=== PATIENT | female | born 1960 | race Caucasian/White ===

== ENCOUNTER 2020-09-26 15:39 | Emergency (ER) | payer OTHER ==
[~2020-09-26] VITALS: Ht 162.5 cm; Wt 97.2 kg
--- NOTE | 2020-09-26 16:11 | ED GI ---
General Chief Complaint: Abdominal/GI Problems Stated Complaint: BLOOD IN STOOL History of Present Illness Date Seen by Provider: Sep 26, 2020 Time Seen by Provider: 16:00 Initial Comments 59-year-old female presents with onset of blood in her stool today. History of present illness, patient has had diarrhea daily for the past almost 3 weeks. It finally slowed down and she had no bowel movements for 3 days until today she said she had a hard bowel movement, then loose stool again and thereafter had fr ank blood without stool a couple times. Denies history of melena, hematochezia, or any GI disorder. Patient denies fever, chills or weight loss. Denies nausea vomiting. Denies any abdominal pain. Allergies and Home Medications Patient Home Medication List Home Medication List Reviewed: Yes Review of Systems Review of Systems Constitutional: see HPI; No chills, No fever, No malaise, No weakness EENTM: No Symptoms Reported Respiratory: Denies Cough, Denies Shortness of Air, Denies SOA With Exertion Cardiovascular: Denies Chest Pain, Denies Edema, Denies Lightheadedness, Denies Palpitations, Denies Syncope Gastrointestinal: See HPI; Denies Abdomen Distended, Denies Abdominal Pain; Diarrhea; Denies Nausea, Denies Poor Appetite, Denies Poor Fluid Intake; Rectal Bleeding; Denies Vomiting Genitourinary: Denies Burning, Denies Frequency Musculoskeletal: No back pain, No joint pain Skin: No change in color, No rash Psychiatric/Neurological: No Symptoms Reported; Denies Headache, Denies Numbness, Denies Paresthesia Past [id number] Hx Past Med/Social Hx: Reviewed Nursing Past Med/Soc Hx Patient Social History Recent Foreign Travel: No Contact w/Someone Who Travel: No Physical Exam Vital Signs Capillary Refill : Height/Weight/BMI Height: '" Weight: lbs. oz. kg; BMI Method: General Appearance: WD/WN, no apparent distress Respiratory: chest non-tender, lungs clear, normal breath sounds, no respiratory distress Cardiovascular: regular rate, rhythm, no edema, no JVD Gastrointestinal: normal bowel sounds, non tender, soft, no organomegaly Extremities: normal range of motion, non-tender, normal inspection Back: normal inspection, no CVA tenderness Neurologic/Psychiatric: alert, normal mood/affect Skin: normal color, warm/dry Focused Exam Lactate Level 10/27/20 16:24: Lactic Acid Level Laboratory Tests Test 09/26/20 16:24 Progress/Results/Core Measures Results/Orders Lab Results Laboratory Tests Test 09/26/20 16:24 Range/Units White Blood Count 8.3 4.3-11.0 10^3/uL Red Blood Count 4.53 4.35-5.85 10^6/uL Hemoglobin 13.2 11.5-16.0 G/DL Hematocrit 38 35-52 % Mean Corpuscular Volume 84 80-99 FL Mean Corpuscular Hemoglobin 29 25-34 PG Mean Corpuscular Hemoglobin Concent 35 32-36 G/DL Red Cell Distribution Width 13.5 10.0-14.5 % Platelet Count 273 130-400 10^3/uL Mean Platelet Volume 11.2 H 7.4-10.4 FL Immature Granulocyte % (Auto) 0 % Neutrophils (%) (Auto) 73 42-75 % Lymphocytes (%) (Auto) 17 12-44 % Monocytes (%) (Auto) 6 0-12 % Eosinophils (%) (Auto) 3 0-10 % Basophils (%) (Auto) 1 0-10 % Neutrophils # (Auto) 6.0 1.8-7.8 X 10^3 Lymphocytes # (Auto) 1.4 1.0-4.0 X 10^3 Monocytes # (Auto) 0.5 0.0-1.0 X 10^3 Eosinophils # (Auto) 0.3 0.0-0.3 10^3/uL Basophils # (Auto) 0.0 0.0-0.1 10^3/uL Immature Granulocyte # (Auto) 0.0 0.0-0.1 10^3/uL My Orders Orders - TOMER CARPENTER DO Cbc With Automated Diff (09/26/20 15:53) Comprehensive Metabolic Panel (09/26/20 15:53) Urinalysis (09/26/20 15:53) Lactic Acid Analyzer (09/26/20 15:53) Departure Impression Primary Impression: Lower GI bleed Disposition: 01 HOME, SELF-CARE Condition: Stable Departure-Patient Inst. Decision time for Depature: 16:58 Referrals: LEILA ANGULO DO NO,LOCAL PHYSICIAN (PCP) Primary Care Physician Patient Instructions: Bloody Stools, Adult (DC) Add. Discharge Instructions: Follow up with your primary doctor (or Dr Angulo, General Surgeon) to schedule a diagnostic colonoscopy for lower GI bleeding. All discharge instructions reviewed with patient and/or family. Voiced understanding. TOMER CARPENTER DO Sep 26, 2020 16:11
[2020-09-26 16:47] LABS: BASOPHILS % (AUTO) 1 % (0-10); EOSINOPHILS # (AUTO) 0.3 10^3/uL (0.0-0.3); EOSINOPHILS % (AUTO) 3 % (0-10); HEMATOCRIT 38 % (35-52); HEMOGLOBIN 13.2 G/DL (11.5-16.0); LYMPHOCYTES # (AUTO) 1.4 X 10^3 (1.0-4.0); LYMPHOCYTES % (AUTO) 17 % (12-44); MEAN CORPUSCULAR HEMOGLOBIN 29 PG (25-34); MEAN CORPUSCULAR HGB CONC 35 G/DL (32-36); MEAN CORPUSCULAR VOLUME 84 FL (80-99); MEAN PLATELET VOLUME 11.2 FL (7.4-10.4); MONOCYTES # (AUTO) 0.5 X 10^3 (0.0-1.0); MONOCYTES % (AUTO) 6 % (0-12); NEUTROPHILS % (AUTO) 73 % (42-75); PLATELET COUNT 273 10^3/uL (130-400); WHITE BLOOD COUNT 8.3 10^3/uL (4.3-11.0)
[2020-09-26 16:59] LABS: BILIRUBIN,TOTAL 0.3 MG/DL (0.1-1.0); CALCIUM 9.3 MG/DL (8.5-10.1); CREATININE SERUM 0.98 MG/DL (0.60-1.30); POTASSIUM 3.3 MMOL/L (3.6-5.0)
[2020-09-26 17:00] LABS: ALBUMIN 4.4 GM/DL (3.2-4.5); TOTAL PROTEIN 6.9 GM/DL (6.4-8.2)
[2020-09-26 17:08] VITALS: BP 147/93
[2020-09-26 17:12] LABS: CLARITY,URINE CLEAR; COLOR,URINE YELLOW; GLUCOSE, URINE (UA) NEGATIVE (NEGATIVE); KETONES,URINE NEGATIVE (NEGATIVE); PROTEIN,URINE NEGATIVE (NEGATIVE)
[2020-09-26 17:13] LABS: BACTERIA,URINE FEW /HPF; BILIRUBIN,URINE NEGATIVE (NEGATIVE); LEUKOCYTE ESTERASE ,URINE NEGATIVE (NEGATIVE); NITRITE,URINE NEGATIVE (NEGATIVE); WBC,URINE 0-2 /HPF
== END 2020-09-26 17:09 | disposition home or self-care (01) ==
LOC: ER FS 15:41
DX: K92.2 Gastrointestinal hemorrhage, unspecified (principal)
CPT/HCPCS: 36415; 80053; 81000; 83605; 85025